=== PATIENT | female | born 1995 | race Two or more races ===

== ENCOUNTER 2025-02-08 05:09 | Emergency (ER) | payer MEDICAID, SELFPAY ==
[2025-02-08 05:11] VITALS: BMI 35.9
[2025-02-08 05:32] VITALS: BP 119/87; PULSE 105; RESP 17; TEMP 36.9; O2SAT 96
--- NOTE | 2025-02-08 05:53 | PD.EDRME ---
Rapid Medical Screening Exam RME Arrival date/time: 02/08/25 05:09 Chief Complaint: Nausea/Vomiting/Diarrhea Vital signs: Vital Signs Temperature 98.5 F 02/08/25 05:32 Pulse Rate 105 H 02/08/25 05:32 Respiratory Rate 17 02/08/25 05:32 Blood Pressure 119/87 H 02/08/25 05:32 Pulse Oximetry (%) 96 02/08/25 05:32 Oxygen Delivery Method Room Air 02/08/25 05:32 Vital signs reviewed by provider: Yes RME Narrative: 29-year-old female presents to the ED with a complaint of nausea, vomiting, diarrhea and lower abdominal pain since Friday. She states she is unable to keep anything down. She states she has had a temperature of 101 degrees. She denies any urinary frequency or burning with urination. I have greeted and performed a focused initial assessment of this patient. A comprehensive ED assessment and evaluation of the patient, analysis of all test results, and completion of the medical decision making process will be conducted by additional ED providers.
--- NOTE | 2025-02-08 05:54 | XR_ITS ---
Examination: Abdomen sonogram, complete Date and time of exam: February 08, 2025 0703 hours INDICATIONS: Nausea vomiting diarrhea beginning 4 days ago. Technique: Multiple real-time grayscale transabdominal sonographic images of the abdomen have been obtained. Findings: Absent gallbladder Common bile duct 0.6 cm no stones Pancreatic head 2.4 cm Aorta not enlarged. Liver 16.2 cm no liver lesions Normal hepatopedal portal venous flow Patent IVC Right kidney 10.2 cm cortex 2.2 cm Left kidney 10.9 cm no cortex 2.0 cm No hydronephrosis Spleen 10.3 cm IMPRESSION: Absent gallbladder Common bile duct 0.6 cm no definite stones If biliary colic is a clinical consideration, consider MRCP follow-up
[2025-02-08] MEDS: ONDANSETRON ODT 4 MG TABRAP PO (06:05)
[2025-02-08 06:36] LABS: Basophils % (Auto) 0 % (0-2.5); Eosinophils % (Auto) 0 % (0-10); Hematocrit 46.7 % (36.0-46.0); Hemoglobin 16.1 g/dL (12.0-16.0); Immature Granulocytes % (Auto) 0 % (0-0); Immature Granulocytes Auto 0.04 Thou/mm3 (0.00-0.00); Lymphocytes # (Auto) 1.5 Thou/mm3 (1.0-4.8); Lymphocytes % (Auto) 14 % (10-50); Mean Corpuscular HGB Conc 34.5 g/dl (31.0-37.0); Mean Corpuscular Hemoglobin 30.6 pg (25.0-35.0); Mean Corpuscular Volume 89 fL (80-100); Monocytes # (Auto) 0.9 Thou/mm3 (0.0-0.8); Monocytes % (Auto) 8 % (0-12); Neutrophils # (Auto) 8.2 Thou/mm3 (1.8-7.7); Neutrophils % (Auto) 77 % (37-80); Nucleated Red Blood Cell % 0 /100 WBC (0); Platelet Count 321 Thou/mm3 (140-440); RDW Standard Deviation 40.8 fL (36.4-46.3); Red Blood Count 5.27 Miln/mm3 (4.00-5.20); White Blood Count 10.6 Thou/mm3 (3.6-11.0)
[2025-02-08 06:53] LABS: Alanine Aminotransferase 37 U/L (10-49); Albumin, Serum 5.3 gm/dL (3.5-5.0); Albumin/Globulin Ratio 1.7 (1.2-2.2); Alkaline Phosphatase 85 U/L (46-116); Amylase 38 U/L (30-118); Anion Gap 11 (7-16); Aspartate Amino Transferase 27 U/L (0-34); BUN/Creatinine Ratio 13 Ratio (12-20); Bilirubin,Total 0.5 mg/dL (0.3-1.2); Blood Urea Nitrogen 13 mg/dL (9-23); Calcium 9.3 mg/dL (8.3-10.6); Calcium (Corrected) 9.3 mg/dL (8.5-10.1); Carbon Dioxide 23.5 mMol/L (20.0-31.0); Chloride 106 mMol/L (98-107); Estimated Creatinine Clearance 83.5 mL/min (>60); Globulin 3.1 gm/dL (2.3-3.5); Glucose 134 mg/dL (74-106); Lipase 35 U/L (12-53); Osmolality,Calculated 281 (275-295); Potassium 3.3 mMol/L (3.4-5.1); Sodium 140 mMol/L (136-145); Total Protein 8.4 gm/dL (5.7-8.2); eGFR > 60 See Note
[2025-02-08 08:17] VITALS: BP 111/69; PULSE 108; RESP 19; TEMP 36.9; O2SAT 100
--- NOTE | 2025-02-08 08:23 | PC.NURSE ---
Patient came in to ED for c/o abdominal pain that feels like a stomach bug as stated by pt. Symptoms include feverish yesterday, n/v/d, and poor appetite. Denies any bloody stool but reported black stool after using pepto-bismuth. Currently patient feels better after zofran given. VSS. No n/v/d. Call light within reach, blanket provided.
--- NOTE | 2025-02-08 08:38 | EDNOTE_ITS ---
ED General RME/HPI General Chief complaint: Nausea/Vomiting/Diarrhea Stated complaint: NVD ABD PAIN Arrival date/time: 02/08/25 05:09 RME / HPI RME / HPI narrative: 29-year-old female presents to the ED with a complaint of nausea, vomiting, diarrhea and lower abdominal pain since Friday. She states she is unable to keep anything down. She states she has had a temperature of 101 degrees. She denies any urinary frequency or burning with urination. I have greeted and performed a focused initial assessment of this patient. A comprehensive ED assessment and evaluation of the patient, analysis of all test results, and completion of the medical decision making process will be conducted by additional ED providers. DR. BULLARD MAIN ED EVALUATION: 29 year old female with no past medical history presents to the Emergency Department with complaints of nausea, vomiting, diarrhea, and lower cramping abdominal pain. Onset of symptoms Friday at midday. She states her daughter was sick on Friday with the same symptoms. Patient reports dark stools but denies any bloody stools or black stools. She states she feels better after Zofran here. She also mentioned she had a subjective fever yesterday, but after Tylenol it went away. No dysuria or other urinary symptoms reported. No cough or congestion. Related Data Home Medications ?Medication ?Instructions ?Recorded ?Confirmed ferrous sulfate 325 mg (65 mg 365 mg PO 1XD 09/01/23 0 11/14/23 iron) tablet (iron) vits no.124-ferrous fum 1 tab PO 1XD 09/01/23 11/14/23 27 mg iron-folic acid 800 mcg tablet ( Vitamin) Previous Rx's ?Medication ?Instructions ?Recorded acetaminophen 300 mg-codeine 30 mg 1 tab PO BID PRN pa in #14 tabs 11/16/23 tablet ibuprofen 800 mg tablet 800 mg PO Q8H PRN pain #30 t abs 11/16/23 Allergies Allergy/AdvReac Type Severity Reaction Status Date / Time No Known Allergies Allergy Verified 02/08/25 05:15 Review of Systems Review of Systems Systems Reviewed: All systems reviewed, normal except as documented Narrative Review of Systems: GEN: + subjective fever yesterday (none today), no chills, no weight loss EYES: No discharge, no visual changes, no pain HEENT: No ear pain, no congestion, no sore throat PULM: No shortness of breath, no cough, no congestion CV: No chest pain, no dyspnea on exertion, no palpitations GI: + nausea, + vomiting, + diarrhea, + lower cramping abdominal pain, no constipation : No frequency, no urgency and no dysuria MUSC/SKEL: No joint pain, no back pain SKIN: No rash PSYCH: No hallucinations, no depression HEME/LYMPH: No easy bleeding or bruising tendencies NEURO: No weakness, no headache Past Medical History Past Medical History GASTROINTESTINAL: Positive Gastrointestinal Disorders and Gall Bladder Disease (GALL STONES AND GALL BLADDER REMOVED 2020) REPRODUCTIVE: Positive Previous Pregnancies HEMATOLOGIC: Positive Anemia (ANEMIA) OTHER HISTORY: Positive Hospitalization Family History FAMILY HISTORY: Positive Family Gastrointestinal Problems (MOTHER, GALLBLADDER), Family Cancer (GRANDMA MATERNAL COLON , UNCLE HAS COLON CANCER) and Family Surgery (MOTHER, CHOLECYSTECTOMY) Surgical History SURGICAL: Positive Section (X3) Social History SMOKING STATUS: Never smoker SECOND HAND EXPOSURE: No SUBSTANCE USE: does not use ALCOHOL: Never ED Exam Narrative Physical exam: GENERAL APPEARANCE: alert and oriented x 4, well-developed, well-nourished, no acute distress VITALS: All vitals were reviewed and the pulse ox is 100% on room air, which is normal according to my interpretation. HEENT: Normocephalic, atraumatic; pupils equal, round, reactive to light; EOMI; mucous membranes pink, moist; oropharynx clear NECK: Supple LUNGS: CTABL; no wheezes, no rales, no rhonchi HEART: Regular rate, regular rhythm; normal S1, S2; no murmurs ABDOMEN: non distended; normal BS; soft, no tenderness, no guarding, no rebound; no masses, no organomegaly, no hernia BACK: no CVA tenderness EXTREMITIES: atraumatic; no edema NEUROLOGIC: awake; alert and oriented x4; cranial nerves II-XII grossly intact; no focal sensory or motor deficits PSYCHIATRIC: appropriate mood and affect SKIN: warm, dry, normal color; no rashes Course Quality Measures none Orders Category Date Time Status Bedside COVID-19 Antigen Test NOW Care 02/08/25 06:35 Completed Bedside Influenza A&B Antigen Test NOW Care 02/08/25 06:35 Completed NPO STAT Care 02/08/25 05:54 Completed US abdomen Stat Exams 02/08/25 05:54 Completed Amylase Stat Lab 02/08/25 06:17 Completed CBC Stat Lab 02/08/25 06:17 Completed Comprehensive Metabolic Panel Stat Lab 02/08/25 06:17 Completed HCG Qualitative,Urine Stat Lab 02/08/25 11:00 Completed Lipase Stat Lab 02/08/25 06:17 Completed Urinalysis Stat Lab 02/08/25 11:00 Completed Urine Culture Stat Lab 02/08/25 11:00 Received Acetaminophen Tab [Tylenol ES Tab] Med 02/08/25 09:47 Discontinued 1,000 mg PO X1 ONE Ondansetron Odt [Zofran Odt] Med 02/08/25 05:56 Discontinued 4 mg PO X1 ONE Vital Signs Vital signs: Vital Signs Temperature 98.5 F 02/08/25 05:32 Pulse Rate 105 H 02/08/25 05:32 Respiratory Rate 17 02/08/25 05:32 Blood Pressure 119/87 H 02/08/25 05:32 Pulse Oximetry (%) 96 02/08/25 05:32 Oxygen Delivery Method Room Air 02/08/25 05:32 Discharge Plan Plan Patient Disposition: HOME (Self Care) Patient condition on transfer: Stable Prescriptions/Referrals Prescriptions/Med Rec: No Action ferrous sulfate [iron] 325 mg (65 mg iron) Tablet 365 mg PO 1XD Vitamin 27 mg iron- 800 mcg Tablet 1 tab PO 1XD acetaminophen-codeine 300-30 mg tablet 1 tab PO BID PRN (Reason: pain) Qty: 14 0RF ibuprofen 800 mg tablet 800 mg PO Q8H PRN (Reason: pain) Qty: 30 0RF Referrals: Stuart Velazquez MD [Primary Care Provider] - In 1 week Problem List Clinical Impression: Vomiting and diarrhea Patient/Caregiver Discharge Instructions Discharge Activity: activity as tolerated Education Materials: ED Vomiting and Diarrhea ... Print Language: Malaysian Stand Alone Forms: Renee Award Info., Patient Portal Info Letter MDM Narrative [facility] hospital course: I, Anahi Vyas, am scribing for and in the presence of Dr. Bullard. Clinical Information Provided by patient Medical Records Reviewed [facility] Meds/Rx Considered, not Ordered None Labs/Rad/Tests considered, not Ordered None Chronic Illness/Social Conditions Add or document further as needed: Denies any PMHx, surgeries, daily medications, or known allergies. EKG EKG not done Imaging Radiology reports / interpretation(s): Procedure(s): US abdomen Accession Number(s): [id number] cc: Stuart Velazquez MD; Andrew Easley MD; Erin Leonardo PA-C~ Examination: Abdomen sonogram, complete Date and time of exam: February 08, 2025 0703 hours INDICATIONS: Nausea vomiting diarrhea beginning 4 days ago. Technique: Multiple real-time grayscale transabdominal sonographic images of the abdomen have been obtained. Findings: Absent gallbladder Common bile duct 0.6 cm no stones Pancreatic head 2.4 cm Aorta not enlarged. Liver 16.2 cm no liver lesions Normal hepatopedal portal venous flow Patent IVC Right kidney 10.2 cm cortex 2.2 cm Left kidney 10.9 cm no cortex 2.0 cm No hydronephrosis Spleen 10.3 cm IMPRESSION: Absent gallbladder Common bile duct 0.6 cm no definite stones If biliary colic is a clinical consideration, consider MRCP follow-up Dictated By: Andrew Easley MD Medication Administration(s) Medication Administration History Discontinued Medications Acetaminophen (Acetaminophen 500 Mg Tablet) 1,000 mg PO X1 ONE Stop: 02/08/25 09:48 Last Admin: 02/08/25 10:14 Dose: 1,000 mg Documented By: OLVIN Ondansetron HCl (Ondansetron Odt 4 Mg Tabrap) 4 mg PO X1 ONE; Protocol Stop: 02/08/25 05:57 Last Admin: 02/08/25 06:05 Dose: 4 mg Documented By: TAMAR Diagnosis Differential diagnosis: viral infection, bacterial infection, GERD Most likely dx, and/or detailed dx discussion: Vomiting and diarrhea Dispositon Disposition: Discharge Home
[2025-02-08] MEDS: ACETAMINOPHEN 500 MG TABLET 1000 MG PO (10:14)
[2025-02-08 11:29] LABS: Collection Type, Urine Clean Catch
[2025-02-08 11:35] LABS: HCG Qualitative,Urine Negative
[2025-02-08 11:48] LABS: Bilirubin,Urine Negative (Negative); Blood,Urine 1+ (Negative); Clarity,Urine Clear (Clear/Hazy); Color,Urine Yellow (Lt Yel-Yel); Glucose, Urine Negative (Negative); Hyaline Casts,Urine < 1 /hpf (0-1); Ketones,Urine Trace (Negative); Leukocyte Esterase,Urine Negative (Negative); Nitrite,Urine Negative (Negative); Protein,Urine 2+ (Neg - Trace); RBC,Urine 8 /hpf (0-3); Specific Gravity,Urine 1.034 (1.001-1.035); Squamous Epithelial Cell,Urine 3 /hpf (0-5); Urobilinogen,Urine Negative mg/dL (0.0-1.0); WBC,Urine 4 /hpf (0-5)
[2025-02-08 11:53] VITALS: BP 116/73; PULSE 99; RESP 18; TEMP 37.5; O2SAT 95
[2025-02-08 13:50] VITALS: BP 127/84; PULSE 82; RESP 18; TEMP 36.8; O2SAT 98
[2025-02-08 13:52] VITALS: BP 127/84; PULSE 82; RESP 18; TEMP 36.8; O2SAT 98
== END 2025-02-08 13:53 | disposition home or self-care (01) ==
PROVIDERS: Physician Assistant; Emergency Provider Emergency Medicine; PCP Family Medicine
DX: R11.2 Nausea with vomiting, unspecified (principal); R19.7 Diarrhea, unspecified; R10.30 Lower abdominal pain, unspecified
CPT/HCPCS: 36415; 76700; 80053; 81001; 81025; 82150; 83690; 85025; 87086; 87400; 87811; 99284; Q0162; A9270